=== PATIENT | female | born 1995 | race American Indian/Alaskan Native ===

== ENCOUNTER 2019-03-16 19:46 | Emergency (ER) | payer SELFPAY | END 2019-03-16 20:30 | disposition left against medical advice (07) | LOC: ED 19:46 | DX: M25.572 Pain in left ankle and joints of left foot (principal); Z53.21 Procedure and treatment not carried out due to patient leaving prior to being seen by health care provider ==

== ENCOUNTER 2021-12-31 11:50 | Emergency (ER) | payer SELFPAY ==
[2021-12-31 12:05] VITALS: BP 134/92
== END 2021-12-31 16:18 | disposition left against medical advice (07) ==
LOC: ED 11:50
DX: O20.9 Hemorrhage in early pregnancy, unspecified (principal); Z53.21 Procedure and treatment not carried out due to patient leaving prior to being seen by health care provider; Z3A.01 Less than 8 weeks gestation of pregnancy